=== PATIENT | male | born 1970 | race Caucasian/White ===

== ENCOUNTER 2016-10-31 13:02 | Emergency (ER) | payer MEDICAID ==
[~2016-10-31] VITALS: Wt 72.0 kg
[2016-10-31] MEDS ORDERED: LORAZEPAM 2 MG INJ IV STA (13:44)
[2016-10-31] MEDS ORDERED: SOD CHLORIDE 0.9% 1,000 ML IV STA ×2 (13:44→13:50)
[2016-10-31] MEDS ORDERED: LORAZEPAM 2 MG INJ ONE (13:47)
[2016-10-31 14:30] LABS: BASOPHILS % 0.3 % (0.0-2.0); EOSINOPHILS % 0.6 % (0.0-7.0); HEMATOCRIT 49.3 % (42.0-52.0); HEMOGLOBIN 16.8 g/dl (14.0-18.0); LYMPHOCYTES # 4.7 10^3/ul (0.8-2.9); LYMPHOCYTES % 58.8 % (15.0-51.0); MEAN CORPUSCULAR VOLUME 82.5 fl (82.0-101.0); MEAN PLATELET VOLUME 6.5 fl (7.4-10.4); MONOCYTE # 0.7 10^3/ul (0.3-0.9); MONOCYTES % 9.3 % (0.0-11.0); NEUTROPHIL # 2.5 10^3/ul (1.6-7.5); PLATELET COUNT 207 10^3/UL (140-440); RED BLOOD COUNT 5.98 10^6/ul (4.70-6.10); RED CELL DISTRIBUTION WIDTH 14.9 % (11.5-14.5); UNCORRECTED WBC 8.1 10^3/ul (4.8-10.8); WHITE BLOOD COUNT 8.1 10^3/ul (4.8-10.8)
[2016-10-31 14:33] LABS: ALBUMIN 4.4 g/dl (3.3-4.9); CHLORIDE 102 mmol/L (97-110)
[2016-10-31 14:34] LABS: SODIUM 143 mmol/L (135-144)
[2016-10-31 14:36] LABS: ALANINE AMINOTRANSFERASE 176 IU/L (13-69); ALKALINE PHOSPHATASE 106 IU/L (42-121); ASPARTATE AMINO TRANSFERASE 107 IU/L (15-46); BILIRUBIN,INDIRECT 0.5 mg/dl (0-1.1); BILIRUBIN,TOTAL 0.5 mg/dl (0.2-1.3); BLOOD UREA NITROGEN 8 mg/dl (7-20); CARBON DIOXIDE 22 mmol/L (21-31); CONDITION 1; CREATININE 0.91 mg/dl (0.61-1.24); LH ANALYZER COMMENTS 1; TOTAL PROTEIN 7.5 g/dl (6.1-8.1)
[2016-10-31 14:37] LABS: CALCIUM 9.3 mg/dl (8.4-10.2)
[2016-10-31 14:56] LABS: ALBUMIN/GLOBULIN RATIO 1.41; ANION GAP 23 (8-16); GLUCOSE 418 mg/dl (70-220)
[2016-10-31 15:00] LABS: ACETAMINOPHEN < 10.0 ug/ml (10.0-30.0); SALICYLATE < 1.0 mg/dl (5.0-30.0)
[2016-10-31 15:30] LABS: ADD UMIC NO; URINE BILIRUBIN (Dip) NEGATIVE (NEGATIVE); URINE BLOOD (Dip) NEGATIVE (NEGATIVE); URINE COLOR LT. YELLOW (YELLOW); URINE GLUCOSE (Dip) >=1000 % (NEGATIVE); URINE KETONES (Dip) NEGATIVE (NEGATIVE); URINE LEUKOCYTE ESTERASE (Dip) NEGATIVE (NEGATIVE); URINE NITRITE (Dip) NEGATIVE (NEGATIVE); URINE TOTAL PROTEIN (Dip) NEGATIVE (NEGATIVE); URINE UROBILINOGEN (Dip) 0.2 E.U./dL (0.1-1.0)
[2016-10-31 15:35] LABS: VALPROATE < 10 ug/ml (50-100)
--- NOTE | 2016-10-31 15:36 | RADRPT ---
AMENDMENT: 10/31/2016 3:43:04 PM Eber Vasques M.D Comparison was made to CT 06/04/09 PROCEDURE: CT Brain without contrast. CLINICAL INDICATION: Seizure; Neurologic deficit TECHNIQUE: A CT of the brain was performed on multidetector high-resolution CT scanner utilizing a xial sections from the skull base through the vertex without contrast. One or more of the following dose reduction techniques were used: Automated exposure control, Adjustment of the mA and/or kV acc ording to patient size, and/or use of iterative reconstruction technique. DOSE: CTDI = 45 mGy and the DLP = 630 mGy-cm. COMPARISON: None available FINDINGS: No acute intracranial hemorrhage, significant mass effect or midline shift. The joseph-white different iation is grossly preserved. The ventricles are mildly prominent which may be compensatory to mild generalized volume loss. No significant opacification of the visualized paranasal sinuses or mastoids. IMPRESSION: No acute intracranial abnormality identified. RPTAT: AA .Eber Vasques MD, Date Time Electronically viewed and signed by .Eber Vasques MD, MD on 10/31/2016 15:43 .T/
--- NOTE | 2016-10-31 15:38 | RADRPT ---
PROCEDURE: CT Abdomen and Pelvis without contrast. CLINICAL INDICATION: Abdominal pain TECHNIQUE: CT scan of the abdomen and pelvis was performed on a multidetector high-resolution CT s canner without intravenous contrast. Coronal and sagittal reformatted images were obtained from the axial source images. Images were reviewed on a high-resolution PACS workstation. The total exam CTD I equals 9mGy and the total exam DLP equals 591mGy-cm. One or more of the following dose reduction t echniques were used: Automated exposure control, Adjustment of the mA and/or kV according to patient size, and/or use of iterative reconstruction technique. COMPARISON: Abdominal CT 06/04/09 FINDINGS: Evaluation of the solid organs is limited given the lack of intravenous contrast administration. Bibasilar atelectasis. Hypoattenuation of the liver. Coronary arterial atherosclerosis. The pancreas, spleen, and adrenals are grossly unremarkable. No focal pericholecystic inflammatory changes. No hydronephrosis. No renal or ureteral stone. No bowel obstruction. Normal-caliber appendix. No significant retroperitoneal lymphadenopathy, ascites or evidence of pneumoperitoneum. Iliac vascular calcifications. IMPRESSION: No acute intra-abdominal process identified. No renal or ureteral stone. Normal-caliber appendix. No evidence of bowel obstruction. Hepatic steatosis. RPTAT: AA .Eber Vasques MD, Date Time Electronically viewed and signed by .Eber Vasques MD, on 10/31/2016 15:38 .T/
[2016-10-31 16:33] LABS: BARBITURATES NEGATIVE (NEGATIVE); BENZODIAZEPINES NEGATIVE (NEGATIVE); CANNABINOIDS NEGATIVE (NEGATIVE); COCAINE NEGATIVE (NEGATIVE); OPIATES NEGATIVE (NEGATIVE)
[2016-10-31 16:37] VITALS: BP 109/86; PULSE 95; RESP 18; TEMP 98.4
--- NOTE | 2016-10-31 16:37 | ERD ---
ER Documentation Chief Complaint Date/Time DATE: 10/31/16 TIME: 16:37 Chief Complaint ABD PAIN X2 WEEKS, DENIES N/V/D, SMELLS OF ETOH HPI Patient is a 46-year-old male with diabetes who presents with abdominal pain. Please note the history and physical exam is limited as the patient is altered at this time. He supposedly had a seizure in the waiting room and I am not able to get a history currently. Upon review of old medical records this is the patient's fourth visit to the ER since 2008. ROS All systems reviewed and are negative except as per history of present illness. Medications Home Meds No Active Prescriptions or Reported Meds Allergies Allergies: Coded Allergies: No Known Allergy (Verified Allergy, Mild, 06/04/09) PMhx/Soc History of Surgery: No Anesthesia Reaction: No Hx Neurological Disorder: No Hx Respiratory Disorders: No Hx Cardiac Disorders: No Hx Psychiatric Problems: No Hx Miscellaneous Medical Probl: Yes (DM) Hx Alcohol Use: Yes Hx Substance Use: No Hx Tobacco Use: No Smoking Status: Never smoker FmHx Unable to obtain Physical Exam Vitals Vital Signs Date Time Temp Pulse Resp B/P Pulse Ox O2 Delivery O2 Flow Rate FiO2 10/31/16 16:37 98.4 95 18 109/86 98 Nasal Cannula 2.0 10/31/16 14:16 Nasal Cannula 2 10/31/16 14:14 98.0 107 27 113/72 96 Room Air 2.0 10/31/16 13:17 99.1 124 18 127/69 96 Physical Exam Const: Patient is not awake or responding to commands at this time, there appears to be shaking but does not appear to be true seizure activity, potentially pseudoseizure Head: Atraumatic Eyes: Normal Conjunctiva ENT: Normal External Ears, Nose and Mouth. Neck: Full range of motion..~ No meningismus. Resp: Clear to auscultation bilaterally Cardio: Regular rate and rhythm, no murmurs Abd: Soft, non tender, non distended. Normal bowel sounds Skin: No petechiae or rashes Back: No midline or flank tenderness Ext: No cyanosis, or edema Neur: Awake but not following commands Result Diagram: 10/31/16 1415 10/31/16 1415 Results 24 hrs Laboratory Tests Test 10/31/16 13:48 10/31/16 14:15 10/31/16 14:58 10/31/16 15:00 Bedside Glucose 385mg/dL 311mg/dL Acetaminophen Level < 10.0ug/ml Alanine Aminotransferase (ALT/SGPT) 176IU/L Albumin 4.4g/dl Albumin/Globulin Ratio 1.41 Alkaline Phosphatase 106IU/L Anion Gap 23 Aspartate Amino Transf (AST/SGOT) 107IU/L Basophils # 0.010^3/ul Basophils % 0.3% Blood Morphology Comment Blood Urea Nitrogen 8mg/dl Calcium Level 9.3mg/dl Carbon Dioxide Level 22mmol/L Chloride Level 102mmol/L Creatinine 0.91mg/dl Direct Bilirubin 0.00mg/dl Eosinophils # 0.010^3/ul Eosinophils % 0.6% Ethyl Alcohol Level 280.0mg/dl Globulin 3.10g/dl Glucose Level 418mg/dl Hematocrit 49.3% Hemoglobin 16.8g/dl Indirect Bilirubin 0.5mg/dl Lipase 303U/L Lymphocytes # 4.710^3/ul Lymphocytes % 58.8% Mean Corpuscular Hemoglobin 28.0pg Mean Corpuscular Hemoglobin Concent 34.0g/dl Mean Corpuscular Volume 82.5fl Mean Platelet Volume 6.5fl Monocytes # 0.710^3/ul Monocytes % 9.3% Neutrophils # 2.510^3/ul Neutrophils % 31.0% Nucleated Red Blood Cells # 0.010^3/ul Nucleated Red Blood Cells % 0.0/100WBC Phenytoin (Dilantin) Level < 3.0ug/ml Platelet Count 06568^3/UL Potassium Level 4.0mmol/L Red Blood Count 5.9810^6/ul Red Cell Distribution Width 14.9% Salicylates Level < 1.0mg/dl Sodium Level 143mmol/L Total Bilirubin 0.5mg/dl Total Protein 7.5g/dl Valproic Acid (Depakene) Level < 10ug/ml White Blood Count 8.110^3/ul Urine Amphetamines Screen NEGATIVE Urine Barbiturates NEGATIVE Urine Benzodiazepines Screen NEGATIVE Urine Bilirubin NEGATIVE Urine Cannabinoids NEGATIVE Urine Clarity CLEAR Urine Cocaine Screen NEGATIVE Urine Color LT. YELLOW Urine Glucose >=1000% Urine Hemoglobin NEGATIVE Urine Ketones NEGATIVE Urine Leukocyte Esterase NEGATIVE Urine Nitrite NEGATIVE Urine Opiates Screen NEGATIVE Urine Specific [place] <=1.005 Urine Total Protein NEGATIVE Urine Urobilinogen 0.2 E.U./dL Urine pH 5.0 Current Medications Medications (Trade) Dose Ordered Sig/Fernando Route PRN Reason Start Time Stop Time Status Last Admin Dose Admin Sodium Chloride (NS) 1,000 ml @ 1,000 mls/hr Q1H STAT IV 10/31/16 13:44 10/31/16 14:43 DC 10/31/16 14:09 Lorazepam 1 mg 1 mg ONCE STAT IV 10/31/16 13:44 10/31/16 13:46 DC 10/31/16 14:09 Sodium Chloride (NS) 1,000 ml @ 1,000 mls/hr Q1H STAT IV 10/31/16 13:50 10/31/16 14:49 DC 10/31/16 14:09 Procedures/MDM EKG read by me: Rate/Rhythm: Sinus tachycardia at a rate of 113 Intervals: Normal Impression: Sinus tachycardia without evidence of ischemia CT head negative for intrarenal hemorrhage per radiology. CT abdomen and pelvis negative for surgical process per radiology. Patient is a 46-year-old male presents with altered mental status and possible seizure. The patient had shaking but this did not appear to be true seizure activity. He had hyperglycemia but no signs of diabetic ketoacidosis. His alcohol level was significantly elevated at 280. I believe this is likely the cause of his altered mental status. When he was awake his biggest concern that he "could not have sex because of his ability to get an erection". This is most likely related to his diabetes and uncontrolled blood sugars I told him that he will need to follow-up with his primary doctor closely. He can return for any worsening symptoms. I doubt meningitis or serious bacterial infection. I doubt intracranial hemorrhage or mass. I doubt status epilepticus. Critical Care: Time: 35 minutes excluding all billable procedures. Treatments/Evaluations: Close monitoring and treatment of unstable vital signs, cardiorespiratory, and neurologic status, while maintaining tight balance of fluid, respiratory, and cardiac interventions. Departure Diagnosis: Primary Impression: Alcohol intoxication Complication of substance-induced condition: with delirium Qualified Code: F10.121 - Alcohol intoxication, with delirium Additional Impressions: Pseudoseizure Hyperglycemia Abdominal pain Abdominal location: unspecified location Qualified Code: R10.9 - Abdominal pain, unspecified location Condition: Fair Patient Instructions: Abdominal Pain, Hyperglycemia (High Blood Sugar), Alcohol Intoxication Referrals: [facility] YOU HAVE RECEIVED A MEDICAL SCREENING EXAM AND THE RESULTS INDICATE THAT YOU DO NOT HAVE A CONDITION THAT REQUIRES URGENT TREATMENT IN THE EMERGENCY DEPARTMENT. FURTHER EVALUATION AND TREATMENT OF YOUR CONDITION CAN WAIT UNTIL YOU ARE SEEN IN YOUR DOCTORS OFFICE WITHIN THE NEXT 1-2 DAYS. IT IS YOUR RESPONSIBILITY TO MAKE AN APPOINTMENT FOR FOLOW-UP CARE. IF YOU HAVE A PRIMARY DOCTOR --you should call your primary doctor and schedule an appointment IF YOU DO NOT HAVE A PRIMARY DOCTOR YOU CAN CALL OUR PHYSICIAN REFERRAL HOTLINE AT IF YOU CAN NOT AFFORD TO SEE A PHYSICIAN YOU CAN CHOSE FROM THE FOLLOWING [facility] [address] [facility] [address] [facility] [facility] [address] [facility] [facility] [address] [facility] [facility] [address] [facility]. [facility] [address] Additional Instructions: Call your primary care doctor TOMORROW for an appointment during the next 1-2 days.See the doctor sooner or return here if your condition worsens before your appointment time. BARRY PANTOJA MD Oct 31, 2016 16:37
== END 2016-10-31 16:45 | disposition home or self-care (01) ==
LOC: E/R 13:02
DX: F10.121 Alcohol abuse with intoxication delirium (principal); E11.65 Type 2 diabetes mellitus with hyperglycemia; R56.9 Unspecified convulsions
CPT/HCPCS: 36415; 70450; 74176; 80053; 80164; 80185; 80306; 80307; 81003; 82962; 83690; 85025; 93005; 96361; 96374; J2060; J7030; Z7502; Z7610

== ENCOUNTER 2017-09-13 11:19 | Emergency (ER) | END 2017-09-13 16:48 | disposition left against medical advice (07) ==